=== PATIENT | female | born 1980 | race Caucasian/White ===

== ENCOUNTER 2018-11-14 06:01 | Emergency (ER) | payer MEDICAID ==
[~2018-11-14] VITALS: Ht 157.5 cm; Wt 66.5 kg
[~2018-11-14 06:01] MED LIST: HYDR-3025 PO; ZOF8 PO
[2018-11-14 06:08] VITALS: BP 114/79; PULSE 74; RESP 18; Ht 157.5 cm; Wt 66.5 kg
[2018-11-14] MEDS ORDERED: TRIA15CR55 TOP (07:20)
[2018-11-14] MEDS ORDERED: BEN50 PO (07:21)
[2018-11-14] MEDS ORDERED: METR500T PO (07:21)
[2018-11-15] MEDS ORDERED: ONDA4TAB8 PO (06:49)
[2018-11-15] MEDS ORDERED: FAMO-96 PO (06:49)
[2018-11-15] MEDS ORDERED: IBUP800T48 PO (06:49)
[2018-11-15] MEDS ORDERED: DICY10CA40 PO (06:50)
[2018-11-15] MEDS ORDERED: HYDR-4011 PO (06:50)
--- NOTE | 2018-11-17 16:59 | ERD ---
ER Documentation Chief Complaint Chief Complaint c/o itch abd/trunk area x 2 days. denies rash HPI 38yo F presents with complaint of itching to the abdomen and back. States to have recently started on clindamycin d/t a recent dental procedure and believes rash may be due to allergic reaction. She denies fevers, chills, SOB, chest pain, or dizziness. ROS All systems reviewed and are negative except as per history of present illness. Medications Home Meds Active Scripts Hydrocodone/Acetaminophen ([place] 5-325 Tablet) 1 Each Tablet, 1 TAB PO Q6H PRN for SEVERE PAIN LEVEL 7-10, #12 TAB Prov:WANDA ORTEGA 11/15/18 Dicyclomine HCl (Dicyclomine HCl) 10 Mg Capsule, 10 MG PO TID PRN for ABDOMINAL CRAMPING, #30 CAP Prov:WANDA ORTEGA 11/15/18 Famotidine* (Pepcid*) 20 Mg Tablet, 20 MG PO BID for 30 Days, TAB Prov:WANDA ORTEGA 11/15/18 Ibuprofen* (Motrin*) 800 Mg Tab, 800 MG PO Q6H PRN for PAIN AND OR ELEVATED TEMP, #30 TAB Prov:WANDA ORTEGA 11/15/18 Ondansetron Hcl* (Zofran*) 4 Mg Tablet, 4 MG PO Q8H PRN for NAUSEA AND/OR VOMITING, #30 TAB Prov:WANDA ORTEGA 11/15/18 Diphenhydramine Hcl* (Benadryl*) 50 Mg Cap, 50 MG PO Q6H PRN for ITCHING/RASH, #30 CAP Prov:NACHO LOPEZ PA-C 11/14/18 Metronidazole* (Flagyl*) 500 Mg Tablet, 500 MG PO TID for dental infection for 7 Days, TAB Prov:NACHO LOPEZ PA-C 11/14/18 Triamcinolone Acetonide (Triamcinolone Acetonide) 0.1% - 15 Gm Cream.gm., 1 APPLIC TOP BID PRN for ITCHING, #30 G Prov:NACHO LOPEZ PA-C 11/14/18 Ondansetron Hcl* (Zofran* ODT) 8 mg -ODT Tab.disper, 8 MG PO Q6H PRN for NAUSEA AND OR VOMITING, #14 TAB Prov:JULES BARRERA MD 12/31/14 Hydrocodone Bit-Acetaminophen* (Vicodin* ES) 7.5-300 Mg Tablet, 1 EACH PO Q4H PRN for PAIN, #14 TAB Prov:JULES BARRERA MD 12/31/14 Allergies Allergies: Coded Allergies: Penicillins (Unverified Allergy, Unknown, RASH, 11/14/18) PMhx/Soc History of Surgery: Yes (Appendectomy) Anesthesia Reaction: No Hx Neurological Disorder: No Hx Respiratory Disorders: No Hx Cardiac Disorders: No Hx Psychiatric Problems: No Hx Miscellaneous Medical Probl: Yes (Gastritis) Hx Alcohol Use: No Hx Substance Use: No Hx Tobacco Use: No FmHx Family History: No diabetes, No coronary disease, No other Physical Exam Vitals Vital Signs Date Temp Pulse Resp B/P (MAP) Pulse Ox O2 O2 Flow FiO2 Time Delivery Rate 11/14/18 97.7 74 18 114/79 99 06:08 (91) Physical Exam Const: No acute distress Head: Atraumatic Eyes: Normal Conjunctiva ENT: Normal External Ears and Nose. No angioedema, no tongue swelling, no drooling. Poor dentition with halitosis. Neck: Full range of motion. No meningismus. Resp: Clear to auscultation bilaterally. Speaking full sentences. No wheezes, no rales, no rhonchi, no accessory muscle use. Cardio: Regular rate and rhythm, no murmurs Abd: Soft, non tender, non distended. No guarding. Skin: No petechiae or visible rashes. Pt abdomen, back, and bilat UE visibly dry with linear erythema consisted with areas pt admits to scratching. No vesiculations, bullous lesions, warmth, discharge, or erythema. Neur: Awake and alert Psych: Normal Mood and Affect Procedures/MDM MDM: 38yo F presents with complaint of itching and rash x 2 days s/p abx use. Physical exam findings not classic for allergic drug reaction and most consistent with eczema. There are no vesiculations, bullae, warmth, erythema, ulcerations, or discharge. Very low suspicion for cellulitis, SJS, or severe drug reaction. Pt vitals WNL. She is stable for discharge at this time with close outpatient follow-up. Given pt concern for allergic drug reaction was started to Flagyl for dental infection and advised to f/u with her dentist for further management. For itching she is discharged home with prescription for Famotidine, Benadryl, and Trimacinolone oint. Strict ED return precautions discussed. Pt to return if symptoms persist or worsen despite treatment. Verbal understanding and agreement to treatment plan expressed. All questions addressed and answered. Departure Diagnosis: Primary Impression: Eczema Eczema type: unspecified Qualified Codes: L30.9 - Dermatitis, unspecified Additional Impressions: Itching Dental infection Condition: Good Patient Instructions: Self-Care for Skin Rashes, Atopic Dermatitis (Eczema) [facility] Usted se de la paz hecho un examen mdico de control que le indica que no est en paul condicin que requiera tratamiento urgente en el Departamento de Emergencia. Un estudio ms profundo y el tratamiento de rao condicin pueden esperar sin ningn riesgo hasta que usted sea atendida/o en el consultorio de rao mdico o paul clnica. Es responsabilidad suya arreglar paul mary para el seguimiento del aryan. MANEJO DE CONDICIONES NO URGENTES EN EL FUTURO 1) Si usted tiene un mdico de atencin primaria: Usted debera llamar a rao mdico de atencin primaria antes de venir al departamento de emergencia. Despus de las horas de consultorio, rao doctor o rao asociado/a est disponible por telfono. El mdico o enfermero de lois en el servicio telefnico puede asesorarle por jaime medio para atender el problema, o aryan contrario se puede programar paul mary. 2) Si usted no tiene un mdico de atencin primaria: Llame al mdico o clnica de referencia que aparece abajo rosa maria las horas de consultorio para hacer paul mary para que le vean. CLINICAS: [facility] [phone] [id number] [facility] [phone] [id number] [facility] [phone] [id number] [facility] [phone] [id number] [facility] [phone] [id number] [facility]. [phone] NACHO BAXTER PA-C Nov 17, 2018 16:58
== END 2018-11-14 07:35 | disposition home or self-care (01) ==
LOC: FTE 06:01
DX: L30.9 Dermatitis, unspecified (principal); K04.7 Periapical abscess without sinus
CPT/HCPCS: 99283

== ENCOUNTER 2018-11-15 02:51 | Emergency (ER) | payer MEDICAID ==
[~2018-11-15] VITALS: Ht 154.9 cm; Wt 66.9 kg
[~2018-11-15 02:51] MED LIST changes: +BEN50 PO; +METR500T PO; +TRIA15CR55 TOP
[2018-11-15 02:56] VITALS: Ht 154.9 cm; Wt 66.9 kg
[2018-11-15] MEDS ORDERED: ONDANSETRON 4 MG INJ IV STA (03:54)
[2018-11-15] MEDS ORDERED: KETOROLAC 30 MG INJ IV STA (03:54)
[2018-11-15] MEDS ORDERED: morphine 4 MG/ML VIAL IV STA (03:54)
--- NOTE | 2018-11-15 03:54 | ERD ---
ER Documentation Chief Complaint Chief Complaint C/O GENERALIZED BACK PAIN X2 DAYS HPI This is a 37-year-old female who presents here in emerge department with complaints of right upper abdominal pain, bilateral lower back pain for about 2 days but got worse today. Complains of mild blood in urine. Complains of nausea but no vomiting. LMP: Stated that was yesterday. G2, . Denies headache, head injury, loss of consciousness, dizziness, neck pain, neck stiffness, throat pain, difficulty swallowing, difficulty breathing lying flat, shoulder pain, chest pain, back pain, constipation, diarrhea, urinary symptoms, or possibility being , loss of bowel and bladder control, trauma, injury, falls, difficulty walking due to pain, numbness or tingling sensation, calf pain, recent travel, recent major surgery in the last 3 weeks, calf pain, recent long travel, recent exposure to any illness, recent antibiotic use in the last 3 months, fever, chills, seizures. Past medical history: Surgical history: Appendectomy. Social: Denies smoking, use of alcoholic beverages, use of illegal drugs. ROS All systems reviewed and are negative except as per history of present illness. Medications Home Meds Active Scripts Hydrocodone/Acetaminophen ([place] 5-325 Tablet) 1 Each Tablet, 1 TAB PO Q6H PRN for SEVERE PAIN LEVEL 7-10, #12 TAB Prov:WANDA ORTEGA 11/15/18 Dicyclomine HCl (Dicyclomine HCl) 10 Mg Capsule, 10 MG PO TID PRN for ABDOMINAL CRAMPING, #30 CAP Prov:WANDA ORTEGA 11/15/18 Famotidine* (Pepcid*) 20 Mg Tablet, 20 MG PO BID for 30 Days, TAB Prov:WANDA ORTEGA 11/15/18 Ibuprofen* (Motrin*) 800 Mg Tab, 800 MG PO Q6H PRN for PAIN AND OR ELEVATED TEMP, #30 TAB Prov:WANDA ORTEGA 11/15/18 Ondansetron Hcl* (Zofran*) 4 Mg Tablet, 4 MG PO Q8H PRN for NAUSEA AND/OR VOMITING, #30 TAB Prov:WANDA ORTEGA 11/15/18 Diphenhydramine Hcl* (Benadryl*) 50 Mg Cap, 50 MG PO Q6H PRN for ITCHING/RASH, #30 CAP Prov:NACHO LOPEZ PA-C 11/14/18 Metronidazole* (Flagyl*) 500 Mg Tablet, 500 MG PO TID for dental infection for 7 Days, TAB Prov:NACHO LOPEZ PA-C 11/14/18 Triamcinolone Acetonide (Triamcinolone Acetonide) 0.1% - 15 Gm Cream.gm., 1 APPLIC TOP BID PRN for ITCHING, #30 G Prov:NACHO LOPEZ PA-C 11/14/18 Ondansetron Hcl* (Zofran* ODT) 8 mg -ODT Tab.disper, 8 MG PO Q6H PRN for NAUSEA AND OR VOMITING, #14 TAB Prov:JULES BARRERA MD 12/31/14 Hydrocodone Bit-Acetaminophen* (Vicodin* ES) 7.5-300 Mg Tablet, 1 EACH PO Q4H PRN for PAIN, #14 TAB Prov:JULES BARRERA MD 12/31/14 Allergies Allergies: Coded Allergies: Penicillins (Unverified Allergy, Unknown, RASH, 11/14/18) PMhx/Soc History of Surgery: Yes (Appendectomy) Anesthesia Reaction: No Hx Neurological Disorder: No Hx Respiratory Disorders: No Hx Cardiac Disorders: No Hx Psychiatric Problems: No Hx Miscellaneous Medical Probl: Yes (Gastritis) Hx Alcohol Use: No Hx Substance Use: No Hx Tobacco Use: No Smoking Status: Never smoker Physical Exam Vitals Vital Signs Date Temp Pulse Resp B/P (MAP) Pulse Ox O2 O2 Flow FiO2 Time Delivery Rate 11/15/18 98.1 73 18 136/85 98 Room Air 07:02 (102) 11/15/18 98.0 71 19 113/75 100 02:56 (88) Physical Exam Const: No acute distress Head: Atraumatic Eyes: Normal Conjunctiva ENT: Normal External Ears, Nose and Mouth. Neck: Full range of motion. No meningismus. Resp: Clear to auscultation bilaterally Cardio: Regular rate and rhythm, no murmurs Abd: Soft, non tender, non distended. Normal bowel sounds. Right upper abdominal tenderness. Negative Sophia sign (heel jar test). Negative psoas sign. Negative Rovsing sign. Noted bilateral CVA tenderness. Ambulatory with steady gait. Skin: No petechiae or rashes. Examined with female carpenter supervisor wooden ship. No vesicular lesions. Back: No midline or flank tenderness Ext: No cyanosis, or edema Neur: Awake and alert. No neurological deficits. Psych: Normal Mood and Affect Result Diagram: 11/15/18 0454 11/15/18 0454 Results 24 hrs Laboratory Tests Test 11/15/18 04:12 11/15/18 04:54 POC Beta HCG, Qualitative NEGATIVE White Blood Count 11.2 10^3/ul Red Blood Count 4.73 10^6/ul Hemoglobin 11.9 g/dl Hematocrit 36.4 % Mean Corpuscular Volume 77.0 fl Mean Corpuscular Hemoglobin 25.2 pg Mean Corpuscular Hemoglobin Concent 32.7 g/dl Red Cell Distribution Width 13.8 % Platelet Count 431 10^3/UL Mean Platelet Volume 9.3 fl Immature Granulocytes % 0.400 % Neutrophils % 68.2 % Lymphocytes % 20.3 % Monocytes % 6.4 % Eosinophils % 3.7 % Basophils % 1.0 % Nucleated Red Blood Cells % 0.0 /100WBC Immature Granulocytes # 0.040 10^3/ul Neutrophils # 7.6 10^3/ul Lymphocytes # 2.3 10^3/ul Monocytes # 0.7 10^3/ul Eosinophils # 0.4 10^3/ul Basophils # 0.1 10^3/ul Nucleated Red Blood Cells # 0.0 10^3/ul Urine Color STRAW Urine Clarity CLEAR Urine pH 7.0 Urine Specific [place] 1.008 Urine Ketones NEGATIVE mg/dL Urine Nitrite NEGATIVE mg/dL Urine Bilirubin NEGATIVE mg/dL Urine Urobilinogen NEGATIVE mg/dL Urine Leukocyte Esterase NEGATIVE Mary/ul Urine Hemoglobin NEGATIVE mg/dL Urine Glucose NEGATIVE mg/dL Urine Total Protein NEGATIVE mg/dl Sodium Level 141 mmol/L Potassium Level 3.8 mmol/L Chloride Level 105 mmol/L Carbon Dioxide Level 27 mmol/L Anion Gap 9 Blood Urea Nitrogen 7 mg/dl Creatinine 0.69 mg/dl Est Glomerular Filtrat Rate mL/min > 60 mL/min Glucose Level 116 mg/dl Calcium Level 9.9 mg/dl Total Bilirubin 0.4 mg/dl Direct Bilirubin 0.00 mg/dl Indirect Bilirubin 0.4 mg/dl Aspartate Amino Transf (AST/SGOT) 24 IU/L Alanine Aminotransferase (ALT/SGPT) 18 IU/L Alkaline Phosphatase 100 IU/L Total Protein 8.5 g/dl Albumin 4.7 g/dl Globulin 3.80 g/dl Albumin/Globulin Ratio 1.23 Amylase Level 95 U/L Lipase 121 U/L Current Medications Medications Dose Sig/[place] Start Time Status Last (Trade) Ordered Route PRN Stop Time Admin Dose Reason Admin Ketorolac 30 mg ONCE STAT 11/15/18 Cancel Tromethamine IV 03:54 (Toradol) 11/15/18 03:55 Morphine 4 mg ONCE STAT 11/15/18 DC 11/15/18 Sulfate IV 03:54 05:07 (morphine) 11/15/18 03:58 Ondansetron 4 mg ONCE STAT 11/15/18 DC 11/15/18 HCl (Zofran IV 03:54 05:07 Inj) 11/15/18 03:58 Sodium 1,000 ml @ Q1H ONCE 11/15/18 DC 11/15/18 Chloride 1,000 mls/hr IV 04:00 05:08 11/15/18 04:59 Ketorolac 30 mg ONCE ONCE 11/15/18 DC 11/15/18 Tromethamine IV 04:28 05:07 (Toradol) 11/15/18 04:29 Procedures/MDM Diagnostic tests: POC urine : Negative. Urinalysis: Reviewed. Culture urine: Sent. Blood works: Reviewed. Ultrasound of the gallbladder: CT of the abdomen and pelvis without contrast: 1. Mildly thickened gallbladder wall and heterogeneous areas of soft tissue attenuation within the gallbladder lumen, including a prominent 2.2 x 3.3 cm density within the body, most likely representing noncalcified stones. A neoplastic process cannot be excluded, consider surgical consultation versus further evaluation with ultrasound or MRI. 2. Moderate volume retained stool within the proximal large bowel, possibly indicating constipation. Case is discussed with supervising physician, Dr. Malissa Hickey who agreed my medical decision making. Treatment: Saline lock. Normal saline IV bolus. Morphine IV. Toradol IV. Zofran IV. Re-evaluation: Denies chest pain, back pain, abdominal pain. No episode of emesis here in the emergency department. No abdominal tenderness. No CVA tenderness. Stated that he feels much better at this time and that she is ready to go home. Differential diagnosis I have low suspicion for pancreatitis, cholecystitis, diverticulitis, appendicitis, bowel obstruction, obstructing kidney stones, septic stone, p yelonephritis. This case was discussed with my supervising physician, Dr. Malissa Hickey who agreed my medical decision making. Final diagnosis: Gallstones without infectious process. Prescription: Motrin. Bentyl. Zofran. [place]. Follow-up with PCP in the next 24-48 hours. Come back here in the emergency department for any new symptoms or any worsening symptoms. All questions and concerns were answered. Patient and family members verbalized understanding and agreed with plan of care. Hemodynamically stable on discharge. Departure Diagnosis: Primary Impression: Gallstones Additional Impression: Abdominal pain Condition: Stable Additional Instructions: Follow-up with PCP in the next 24-48 hours. Come back here in the emergency department for any new symptoms or any worsening symptoms. WANDA ORTEGA Nov 15, 2018 03:54
[2018-11-15] MEDS ORDERED: SOD CHLORIDE 0.9% 1,000 ML IV ONE (04:00)
[2018-11-15] MEDS ORDERED: KETOROLAC 60 MG INJ IV ONE (04:28)
[2018-11-15] MEDS ORDERED: FAMO-96 PO (06:49)
[2018-11-15] MEDS ORDERED: ONDA4TAB8 PO (06:49)
[2018-11-15] MEDS ORDERED: IBUP800T48 PO (06:49)
[2018-11-15] MEDS ORDERED: HYDR-4011 PO (06:50)
[2018-11-15] MEDS ORDERED: DICY10CA40 PO (06:50)
[2018-11-15 07:02] VITALS: BP 136/85; PULSE 73; RESP 18
== END 2018-11-15 07:13 | disposition home or self-care (01) ==
LOC: FTE 02:51
DX: K80.20 Calculus of gallbladder without cholecystitis without obstruction (principal)
CPT/HCPCS: 74176; 76705; 80053; 81003; 81025; 82150; 83690; 85025; 96361; 96374; 96375; J1885; J2270; J2405; J7030; Z7502